=== PATIENT | female | born 1995 | race African-American/Black ===

== ENCOUNTER 2019-02-09 09:19 | Inpatient (IN) ==
[2019-02-09] MEDS ORDERED: LACTATED RINGERS 250 ML IV ONE (09:36)
[2019-02-09] MEDS ORDERED: ONDANSETRON 4 MG/2 ML VIAL IV PRN ×2 (09:36→10:53)
[2019-02-09] MEDS ORDERED: LACTATED RINGERS 500 ML IV PRN (09:36)
[2019-02-09] MEDS ORDERED: AMPICILLIN INJ 2,000 MG in SODIUM CHLORIDE 0.9% 100 ML IV ONE (09:40)
[2019-02-09] MEDS ORDERED: BUTORPHANOL 2 MG/ML VIAL ONE (09:50)
[2019-02-09] MEDS ORDERED: LIDOCAINE 1% 50 ML VIAL ONE (09:50)
[2019-02-09] MEDS ORDERED: BUTORPHANOL 2 MG/ML VIAL IV ONE (09:51)
[2019-02-09] MEDS ORDERED: LACTATED RINGERS 1,000 ML IV SCH ×2 (10:00→11:00)
[2019-02-09 10:04] LABS: Basophils % 0.3 % (0.0-0.8); Eosinophils % 0.3 % (0.00-10.9); Hematocrit 32.8 VOL% (35.7-47.0); Hemoglobin 10.3 GM/DL (12.0-16.0); Immature Granulocytes % 1.7 %; Lymphocytes # 2.1 10*3/uL (1.4-4.0); Lymphocytes % 18.3 % (21.3-54.2); Mean Corpuscular HGB Conc 31.4 GM/DL (32-36); Mean Corpuscular Volume 75.6 FL (87-102); Neutrophils % 71.4 % (38.7-73.9); Platelet Count 211 T/CUMM (130-400); Red Blood Count 4.34 MC/CUMM (3.8-5.5); Red Cell Distribution Width 14.6 % (9.3-17.3); White Blood Count 11.6 T/CUMM (4-12)
[2019-02-09] MEDS ORDERED: OXYTOCIN/LR 20 UNIT/1,000 ML BAG IV ONE ×3 (10:13→11:59)
[2019-02-09 10:19] LABS: Alanine Aminotransferase 11 U/L (13-56); Albumin 2.1 G/DL (3.4-5.0); Alkaline Phosphatase 157 U/L (45-117); Aspartate Amino Transferase 11 U/L (0-37); Bilirubin,Total < 0.39 MG/DL (0.2-1.0); Blood Urea Nitrogen 5 MG/DL (7-18); Calcium 8.5 MG/DL (8.5-10.1); Glucose 97 MG/DL (74-106); Osmolality,Calculated 273.5 MOS/KG (273-304)
[2019-02-09 10:29] LABS: Cord Arterial Blood HCO3 18.4 MMOL/L
[2019-02-09 10:30] LABS: Cord Venous Blood HCO3 21.4 MMOL/L; Cord Venous Blood PCO2 35.5 MMHG; Cord Venous Blood PO2 28.8 MMHG
[2019-02-09] MEDS ORDERED: MAGNESIUM HYDROXIDE SUSP 30 ML UDCUP PO PRN (10:53)
[2019-02-09] MEDS ORDERED: BISACODYL 10 MG SUPP RECTAL PRN (10:53)
[2019-02-09] MEDS ORDERED: KETOROLAC 15 MG/1 ML VIAL IV SCH (11:00)
[2019-02-09 16:12] LABS: Barbiturates Screen,Urine Negative (Negative); Benzodiazepines Screen,Urine Negative (Negative); Cannabinoid Screen,Urine Positive (Negative); Opiate Screen,Urine Negative (Negative); Phencyclidine Screen,Urine Negative (Negative)
[2019-02-09 16:33] LABS: Hepatitis B Surface Ag Quant < 0.10 Index; Hepatitis B Surface Ag Result Negative (Negative)
[2019-02-09] MEDS: IBUPROFEN 800 MG TABLET PO SCH (19:41)
[2019-02-09] MEDS ORDERED: BENZOCAINE 20%/MENTHOL 0.5% SPRAY 56 GM CAN TOP PRN (20:51)
[2019-02-09] MEDS ORDERED: WITCH HAZEL PADS 100/JAR TOP PRN (20:52)
[2019-02-09] MEDS: DOCUSATE SODIUM 100 MG CAPSULE PO SCH (21:25)
[2019-02-10] MEDS: IBUPROFEN 800 MG TABLET PO SCH ×4 (00:30→19:05)
[2019-02-10 05:58] LABS: Basophils % 0.2 % (0.0-0.8); Eosinophils # 0.1 10*3/uL (0.0-0.87); Eosinophils % 0.4 % (0.00-10.9); Hematocrit 27.5 VOL% (35.7-47.0); Hemoglobin 8.5 GM/DL (12.0-16.0); Immature Granulocytes % 0.9 %; Lymphocytes # 2.2 10*3/uL (1.4-4.0); Lymphocytes % 19.5 % (21.3-54.2); Mean Corpuscular HGB Conc 30.9 GM/DL (32-36); Mean Platelet Volume 10.8 FL (9.6-12.0); Monocytes % 5.6 % (1.7-12.7); Neutrophils % 73.4 % (38.7-73.9); Platelet Count 163 T/CUMM (130-400); Red Blood Count 3.62 MC/CUMM (3.8-5.5); Red Cell Distribution Width 14.6 % (9.3-17.3); White Blood Count 11.3 T/CUMM (4-12)
[2019-02-10] MEDS ORDERED: ALUMINUM/MAGNES/SIMETH MAX STR 30 ML UDCUP PO PRN (09:13)
[2019-02-10] MEDS: DOCUSATE SODIUM 100 MG CAPSULE PO SCH ×2 (09:35→20:24)
[2019-02-10] MEDS ORDERED: IBUPROFEN 800 MG TABLET PO SCH (14:00)
[2019-02-10] MEDS: IRON (CARBONYL)/VIT C/B12/FA TABLET PO SCH (16:06)
[2019-02-10 21:54] LABS: HIV Antigen/Antibody Result Nonreactive (Nonreactive); Rubella Antibody IgG 97.6 IU/ML
[2019-02-11] MEDS: IBUPROFEN 800 MG TABLET PO SCH ×2 (06:03)
[2019-02-11 07:46] VITALS: BP 110/68
[2019-02-11] MEDS: DOCUSATE SODIUM 100 MG CAPSULE PO SCH (08:55)
[2019-02-11] MEDS: IRON (CARBONYL)/VIT C/B12/FA TABLET PO SCH (08:56)
[2019-02-11] MEDS ORDERED: DIPH/TET/ACEL PERT BOOSTER VACCINE 0.5 ML VIAL IM ONE (10:06)
== END 2019-02-11 11:45 | disposition home or self-care (01) | DRG 560 ==
LOC: N.LDOUT 09:19 → N.LD 09:22 → N.OB 19:22
PROVIDERS: ADMIT Obstetrics & Gynecology; ATTEND Obstetrics & Gynecology